=== PATIENT | female | born 1995 | race Hispanic/Latino ===

== ENCOUNTER 2022-08-08 16:44 | Emergency (ER) | payer OTHER ==
[~2022-08-08] VITALS: Ht 152.4 cm; Wt 64.0 kg
[2022-08-08 17:29] LABS: BASOPHILS % (AUTO) 0.9 % (0.0-5.0); EOSINOPHILS % (AUTO) 3.3 % (0.0-8.0); HEMATOCRIT 34.1 % (36-48); LYMPHOCYTES % (AUTO) 23.3 % (21.0-51.0); MEAN CORPUSCULAR HEMOGLOBIN 28.3 pg (27.0-33.0); MEAN CORPUSCULAR HGB CONC 32.8 g/dL (32.0-36.0); MEAN CORPUSCULAR VOLUME 86.1 fL (79-99); MONOCYTES % (AUTO) 9.9 % (3.0-13.0); NEUTROPHILS % (AUTO) 62.2 % (40.0-77.0); PLATELET COUNT (AUTO) 320 K/uL (130-400); RED BLOOD CELL COUNT(AUTO) 3.96 MIL/uL (4.00-5.50); RED CELL DISTRIBUTION WIDTH 13.1 % (11.0-15.5); WHITE BLOOD COUNT (AUTO) 9.2 K/uL (4.8-10.8)
[2022-08-08] MEDS ORDERED: HYDROCODONE/ACETAMINOPHEN 10/325 MG TAB PO ONE (17:30)
[2022-08-08] MEDS ORDERED: IBUPROFEN 800 MG TAB PO ONE (17:30)
[2022-08-08 17:36] VITALS: BP 107/60
[2022-08-08 17:40] LABS: CREATININE 0.7 mg/dL (0.5-1.5); POTASSIUM 3.8 mmol/L (3.5-5.1)
[2022-08-08 17:45] LABS: ALBUMIN 3.9 g/dL (3.5-5.0); CRP QUANTITATIVE 73.9 mg/L (0.00-9.0); TOTAL PROTEIN, SERUM 8.3 g/dL (6.0-8.3)
[2022-08-08] MEDS ORDERED: CLINDAMYCIN IVPB 600MG/50ML 50 ML IV ONE (18:10)
[2022-08-08] MEDS ORDERED: IBUP-2071 PO (18:11)
[2022-08-08] MEDS ORDERED: CLIN-141 PO (18:11)
[2022-08-08] MEDS ORDERED: CLINDAMYCIN IVPB 600MG/50ML 50 ML IV SCH (18:30)
== END 2022-08-08 18:35 | disposition home or self-care (01) ==
LOC: EDH 16:44
DX: L03.115 Cellulitis of right lower limb (principal); Z79.1 Long term (current) use of non-steroidal anti-inflammatories (NSAID)
CPT/HCPCS: 99284; 96365; 84550; 80053; 85025; 87040 ×2; 83605; 86140; 36415; 73562; J3490